=== PATIENT | female | born 1955 | race Caucasian/White ===

== ENCOUNTER 2020-12-08 14:20 | Emergency (ER) | payer MEDICARE ==
[~2020-12-08] VITALS: Ht 152.4 cm; Wt 77.0 kg
[2020-12-08 14:30] VITALS: BP 164/74
[2020-12-08] MEDS ORDERED: MORPHINE SULFATE 4 MG/ML INJ. IM ONE (15:00)
[2020-12-08] MEDS ORDERED: GABA300C18 PO (15:13)
[2020-12-08] MEDS ORDERED: INDO25CA21 PO (15:13)
--- NOTE | 2020-12-08 15:14 | PHYS DOC ---
Past Medical History Additional Past Medical Histor: gout, preDM Past Surgical History: Cholecystectomy, , Other Additional Past Surgical Histo: heart stents Smoking Status: Never Smoker Alcohol Use: None General Adult EDM: Chief Complaint: FOOT INJURY PAIN HPI: HPI: Patient is a 65 year old female who presents to the ED today complaining of 6 out of 10 left foot pain and right foot pain, symptoms began yesterday. Patient denies anything specifically exacerbating or relieving her symptoms. She states she was seen at urgent care today and was given Toradol which slightly relieved the pain. Denies any trauma. Describes the pain as burning sensation to the feet. States she has a history of prediabetes. Review of Systems: Review of Systems: Constitutional: Denies fever or chills. [] Musculoskeletal: Reports bilateral feet pain. Integument: Denies rash. [] Neurologic: Denies headache, focal weakness or sensory changes. [] Psychiatric: Denies depression or anxiety. [] Heart Score: C/O Chest Pain: N/A Risk Factors: Risk Factors: DM, Current or recent (<one month) smoker, HTN, HLP, family history of CAD, obesity. Risk Scores: Score 0 - 3: 2.5% MACE over next 6 weeks - Discharge Home Score 4 - 6: 20.3% MACE over next 6 weeks - Admit for Clinical Observation Score 7 - 10: 72.7% MACE over next 6 weeks - Early Invasive Strategies Current Medications: Current Medications Medications (Trade) Dose Ordered Sig/Anusha Start Time Stop Time Status Last Admin Dose Admin Morphine Sulfate (Morphine Sulfate) 4 mg 1X ONCE 12/08/20 15:00 12/08/20 15:01 DC 12/08/20 15:02 4 MG Allergies: Allergies: Allergies Coded Allergies Type Severity Reaction Last Updated Verified hydrocodone Allergy Intermediate nausea 12/08/20 Yes cefotaxime Allergy Mild rash 12/08/20 Yes Physical Exam: PE: Constitutional: Well developed, well nourished, no acute distress, non-toxic appearance. [] Skin: Warm, dry, no erythema, no rash. [] Back: No tenderness, no CVA tenderness. [] Extremities: Bilateral feet with no obvious deformity, no swelling, no redness, no tenderness on exam. No cyanosis, no clubbing, ROM intact, no edema. [] Neurologic: Alert and oriented X 3, normal motor function, normal sensory function, no focal deficits noted. [] Psychologic: Affect normal, judgement normal, mood normal. [] Current Patient Data: Vital Signs: Vital Signs Date Time Temp Pulse Resp B/P (MAP) Pulse Ox O2 Delivery O2 Flow Rate FiO2 12/08/20 15:02 20 95 Room Air 12/08/20 14:30 98.3 84 164/74 (104) 98.3 EKG: EKG: [] Radiology/Procedures: Radiology/Procedures: [] Course & Med Decision Making: Course & Med Decision Making Pertinent Labs and Imaging studies reviewed. (See chart for details) Is a 65-year-old female patient presenting to the ED today with bilateral feet pain, symptoms of been going on since yesterday. No known injury. Was given forensic technician as well as instructed to follow-up with PCP. Prescription for indomethacin and gabapentin sent to the pharmacy [facility] Disclaimer: [facility] Disclaimer: This electronic medical record was generated, in whole or in part, using a voice recognition dictation system. Departure Departure Impression: Primary Impression: Foot pain, bilateral Disposition: HOME / SELF CARE / HOMELESS Condition: STABLE Referrals: MICAH CARROLL MD (PCP) ANGI GREENWOOD DPM Call his office tomorrow and set up a follow-up appointment Patient Instructions: Musculoskeletal Pain Additional Instructions: You were evaluated in the emergency room for feet pain. Please contact the pro vided forensic technician and follow-up. Continue to ice and elevate bilateral lower extremities Scripts Indomethacin (INDOMETHACIN) 25 Mg Capsule 1 CAP PO TID for arthritis for 7 Days, #21 CAP 0 Refills with food Prov: EMERALDSARAH Jewel [employer] 12/08/20 Gabapentin (GABAPENTIN ) 300 Mg Capsule 300 MG PO TID for NEUROGENIC PAIN, #30 CAP Prov: EMERALDSARAH Jewel [employer] 12/08/20 EMERALDSARAH Jewel [employer] Dec 08, 2020 15:14
== END 2020-12-08 15:19 | disposition home or self-care (01) ==
LOC: ER 14:20
DX: M79.672 Pain in left foot (principal); M79.671 Pain in right foot; Z88.5 Allergy status to narcotic agent; Z88.8 Allergy status to other drugs, medicaments and biological substances
CPT/HCPCS: 96372; 99283; J2270